=== PATIENT | male | born 1980 | race American Indian/Alaskan Native ===

== ENCOUNTER 2017-05-22 17:40 | Emergency (ER) | payer SELFPAY ==
[2017-05-22 17:47] VITALS: BP 130/95
[2017-05-22] MEDS ORDERED: NORCO 5/325 PO ONE (21:27)
[2017-05-22] MEDS ORDERED: MOTRIN PO ONE (21:27)
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
--- NOTE | 2017-05-24 02:09 | XRay Report ---
FINAL REPORT PROCEDURE: XR SPINE LUMBOSACRAL 2-3V TECHNIQUE: Lumbar spine radiographs, including AP, lateral, and lumbosacral spot views. CPT 50181 HISTORY: c/o worsenign lower back pain COMPARISON: No prior studies are available for comparison. FINDINGS: Alignment: Normal. Vertebral body heights/Disk spaces: Normal. Fracture(s): None. Facets: Normal. Bone mineralization: Normal. IMPRESSION: Normal Examination.
== END 2017-05-22 22:06 | disposition home or self-care (01) ==
LOC: ED 17:40
DX: M54.5 Low back pain (principal); F17.200 Nicotine dependence, unspecified, uncomplicated; V49.50XA Passenger injured in collision with unspecified motor vehicles in traffic accident, initial encounter; Y93.9 Activity, unspecified; Y92.410 Unspecified street and highway as the place of occurrence of the external cause; Y99.9 Unspecified external cause status
CPT/HCPCS: 72100; 99283

== ENCOUNTER 2017-05-28 10:45 | Emergency (ER) | payer SELFPAY ==
[2017-05-28 10:58] VITALS: BP 122/85
[2017-05-28] MEDS ORDERED: FLEXERIL PO ONE (14:11)
[2017-05-28] MEDS ORDERED: TORADOL IM ONE (14:11)
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
== END 2017-05-28 15:19 | disposition home or self-care (01) ==
LOC: ED 10:45
DX: S39.012A Strain of muscle, fascia and tendon of lower back, initial encounter (principal); Z87.891 Personal history of nicotine dependence; V89.2XXA Person injured in unspecified motor-vehicle accident, traffic, initial encounter; Y93.89 Activity, other specified; Y92.89 Other specified places as the place of occurrence of the external cause; Y99.8 Other external cause status
CPT/HCPCS: 96372; 99282; J1885